=== PATIENT | male | born 1940 | race Caucasian/White ===

== ENCOUNTER 2020-07-31 15:52 | Emergency (ER) | payer OTHER ==
[~2020-07-31] VITALS: Ht 177.8 cm; Wt 70.3 kg
--- NOTE | ~2020-07-31 | EMS ---
[address] [address] EMS Patient Care Report Name: ROYA NAVAS Room #: REG ALEXIA Godfrey#: [id number] Admission: 07/31/20 Attend Phys: Discharge: Date of : 38 Report #: [id number] THIS REPORT FOR: //name// Report Transmitted: 07/31/2020 17:36 EMS Care Summary [facility] MED-ACT Incident [id number] @ 07/31/2020 15:11 Incident Location [address] [place] [address] Patient ROYA NAVAS Male, 79 Years 1940 Patient Address [address] [place] [address] Patient History Chronic Obstructive Pulmonary Disease (COPD),Dementia,Depression,Alcohol Abuse,Insomnia, Patient Allergies No known allergies, Patient Medications Trazodone, Acetaminophen, Aspirin, Atorvastatin, Albuterol, Lisinopril, Chief Complaint increased confusion, dementia Disposition Transported No Lights/[place] Dispatch Reason Psychiatric Problem/Abnormal Behavior/Suicide Attempt Transported To [facility] Narrative This crew arrives to find the pt sitting upright in a chair inside of the lobby [address] [address] EMS Patient Care Report Name: ROYA NAVAS Room #: REG Bekah#: [id number] Admission: 07/31/20 Attend Phys: Discharge: Date of : 38 Report #: [id number] of this facility. He appears alert and in no obvious distress, speaking with crew and staff. [place] staff state that the pt has been acting increasingly confused and agitated of late. On this date his doctor and son (DPRHONDA) reportedly asked for the pt to be transported to [facility] ER for a psych evaluation and diagnosis of dementia. The expressed intent is said to be to move the pt to the memory care part of this facility, as the pt continually talks about leaving the facility. The pt denies specific pain or complaint. He is confused to time, location, and event. He is somewhat resistant to transport, but with brief conversation he moves from the chair to the cot under his own power. The pt is secured and moved to the ambulance without incident. He is transported with one attendant in back, no change in condition en route. The pt is moved to an ER olvera bed under his own power, report and care given to KIRA Kelly. Initial Vitals @15:35P: 74,BP: 162/77,SpO2: 99, @15:43P: 66,BP: 158/73,SpO2: 99, @PTAP: 80,R: 20,BP: 161/86,Pain: 0/10,GCS: 14,SpO2: 96,Revised Trauma: 12, Assessments @15:41MENTAL:Place Oriented,SKIN:HEENT:Eyes: Left Pupil: 3-mm,Eyes: Right Pupil: 3-mm,Head/Face: No Abnormalities,LUNG SOUNDS:General: No Abnormalities,ABDOMEN:General: No Abnormalities,PELVIS//GI:EXTREMITIES:Left Arm: No Abnormalities,Right Arm: No Abnormalities,Left Leg: No Abnormalities,Right Leg: No Abnormalities,PULSE:NEURO:No Abnormalities, Impression Confusion/Delirium Procedures @15:41ALS AssessmentResponse: [email or web address]@PTA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 PatientResponse: Unchanged 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,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 Patient,Response: Unchanged FLEXO FOLDER GLUER OPERATOR,BP: 161/86 M,PULSE: 80,RR: 20 R,SPO2: 96 Ox,ETCO2: ,BG: ,PAIN: 0,GCS: 14, 15:09,Call Received 15:09,Psap Call 15:11,Dispatched 15:12,En Route 15:22,On Scene 15:24,At Patient 15:32,Depart Scene 15:35,BP: 162/77 M,PULSE: 74,RR: R,SPO2: 99 Ox,ETCO2: ,BG: ,PAIN: ,GCS: , 15:41,ALS Assessment,Response: UnchangedSucceeded, 15:43,BP: 158/73 M,PULSE: 66,RR: R,SPO2: 99 Ox,ETCO2: ,BG: ,PAIN: ,GCS: , [address] [address] EMS Patient Care Report Name: ELOISEROYA Room #: REG ALEXIA Godfrey#: [id number] Admission: 07/31/20 Attend Phys: Discharge: Date of : 38 Report #: [id number] 15:46,At Destination 16:01,Call Closed Disclaimer v1.1 Copyright 2020 [employer] This EMS Care Summary contains data elements from the applicable legal record (which may be displayed differently). It is designed to provide pertinent information for the following purposes: continuity of care, clinical quality, and state data reporting. The complete legal record is available to ED staff and administrators of the receiving hospital in [employer]'s Patient Tracker. All data is provided "as is."
[2020-07-31] MEDS ORDERED: TYLENOL325 M1 PO (16:08)
[2020-07-31] MEDS ORDERED: ASA81BEC PO (16:09)
[2020-07-31] MEDS ORDERED: PROAIR HFA8.5 GM INH (16:09)
[2020-07-31] MEDS ORDERED: LIPITOR 20 MG T20 M1 PO (16:09)
[2020-07-31] MEDS ORDERED: CELEBREX 200 M200 MG PO (16:09)
[2020-07-31] MEDS ORDERED: VITAMIN B-1100 M2 PO (16:10)
[2020-07-31] MEDS ORDERED: LISINOPRIL2.5 MG PO (16:10)
[2020-07-31] MEDS ORDERED: CLARITIN10 M3 PO (16:10)
[2020-07-31] MEDS ORDERED: FAMOTIDINE 20 M20 MG PO (16:10)
[2020-07-31] MEDS ORDERED: MELATONIN3 M1 PO (16:11)
[2020-07-31] MEDS ORDERED: DESYREL150 MG PO (16:11)
[2020-07-31] MEDS ORDERED: ANTACID LIQUID355 ML PO (16:12)
[2020-07-31 16:56] LABS: ABSOLUTE NEUTROPHILS 5.1 thou/uL (1.4-8.2); BASOPHILS 0.8 % (0.0-2.0); EOSINOPHILS 2.1 % (0.0-3.0); HEMOGLOBIN 15.1 gm/dL (14.0-18.0); LYMPHOCYTES 19.2 % (24.0-44.0); MCH 33.8 pg (26.0-34.0); MCHC 33.6 g/dL (28.0-37.0); MCV 100.5 fL (80.0-100.0); MONOCYTES 6.7 % (1.0-8.0); PLATELET COUNT 323 thou/uL (150-400); POLYS 71.2 % (36.0-66.0); RBC 4.48 mil/uL (4.50-6.00); RDW 14.2 % (10.5-14.5); WBC 7.2 thou/uL (4.0-11.0)
[2020-07-31 17:02] LABS: ANION GAP 10 mmol/L (7-16); BUN 10 mg/dL (7-18); CALCIUM 9.5 mg/dL (8.5-10.1); CHLORIDE 98 mmol/L (98-107); CO2 26 mmol/L (21-32); CREATININE 0.8 mg/dL (0.7-1.3); GLUCOSE 81 mg/dL (74-106); POTASSIUM 4.2 mmol/L (3.5-5.1); SODIUM 134 mmol/L (136-145)
[2020-07-31 17:13] LABS: MAGNESIUM 2.3 mg/dL (1.8-2.4); SGOT 23 U/L (15-37); SGPT 12 U/L (30-65); TOTAL BILIRUBIN 0.4 mg/dL (0.2-1.0); TOTAL PROTEIN 8.2 g/dL (6.4-8.2); TROPONIN-I <0.06 ng/mL (<0.06)
[2020-07-31 17:31] LABS: URINE BILIRUBIN NEGATIVE (Negative); URINE BLOOD 2+ (Negative); URINE CLARITY CLEAR; URINE COLOR YELLOW; URINE GLUCOSE-RANDOM* NEGATIVE (Negative); URINE KETONES NEGATIVE (Negative); URINE LEUKOCYTES-REFLEX NEGATIVE (Negative); URINE NITRITE-REFLEX NEGATIVE (Negative); URINE PROTEIN (DIPSTICK) NEGATIVE (Negative); URINE SPECIFIC GRAVITY <= 1.005 (1.005-1.035); URINE UROBILINOGEN 0.2 E.U./dl (0.2-1.0)
[2020-07-31 17:38] LABS: AMP/METHAMP Negative (Negative); BARBITURATES Negative (Negative); BENZODIAZEPINES Negative (Negative); COCAINE Negative (Negative); METHADONE Negative (Negative); OPIATES Negative (Negative); PCP Negative (Negative)
[2020-07-31 18:20] LABS: BACTERIA-REFLEX 1-9 Few /HPF (None Seen); CASTS None Seen /LPF (None Seen); CRYSTALS None Seen /LPF (None Seen); SQUAMOUS None Seen /LPF (0-3); URINE RBC 0-2 Rare /HPF (0-2); URINE WBC-REFLEX None Seen /HPF (0-5)
--- NOTE | 2020-08-01 07:46 | EKG ---
[facility] [place] [address] ELECTROCARDIOGRAM REPORT Name: ROYA NAVAS Room #: REG [facility]..#: [id number] Admission: 07/31/20 Attend Phys: Discharge: Date of : 39 Report #: [id number] THIS REPORT FOR: cc: Kateryna Murphy MD, Nelopher MD Santiago, Patrick MD [facility] ~ THIS REPORT FOR: //name// [facility] ED Test Date: 2020-07-31 Test Time: 17:27:43 Pat Name: ROYA NAVAS Department: Room: Gender: Pearl Maker: eb murphy : 1940 Requested By: Lebron Ontiveros Order Number: [id number] MD: Tray Corbin Measurements Intervals [place] Rate: 72 P: 269 WI: 178 QRS: -75 QRSD: 99 T: 69 QT: 416 QTc: 456 Interpretive Statements Ectopic atrial rhythm Left anterior fascicular block Abnormal R-wave progression, early transition Baseline wander in lead(s) V3 No previous ECG available for comparison Electronically Signed On 08-01-2020 7:45:55 CDT by Tray Corbin [email or web address] <ELECTRONICALLY SIGNED> By: Tray Corbin MD, FACC 08/01/20 0745 [id number] Tray Corbin MD, FAC /EPI
[2020-08-01 10:02] VITALS: BP 152/76
--- NOTE | 2020-08-01 18:59 | HC ---
[facility] [place] [address] CONSULTATION Name: ROYA NAVAS Room #: [facility] [id number] Admission: 07/31/20 Attend Phys: Discharge: 08/01/20 Date of : 39 Report #: [id number] THIS REPORT FOR: cc: Kateryna Murphy MD, Nelopher MD Kerstein,Gareth Turner DO ~ DATE OF SERVICE: 07/31/2020 EMERGENCY ROOM CONSULTATION EMERGENCY DEPARTMENT ATTENDING: Lebron Ontiveros MD ATTENDING PSYCHIATRIST: Gareth Lobo, REASON FOR CONSULTATION: Question of dementia, appropriate level of care. CHIEF COMPLAINT: Sent to the Emergency Room for attempting to leave the assisted living facility he is at and being agitated. SOURCES OF INFORMATION: Emergency Room staff, notes of Dr. Ontiveros, telephone conversation with his son and DPOA Jose Armando Navas, . Telephone conversation with nurse, Lucas at [phone]. Additionally, telephone call with Dr. Miranda at [phone]. HISTORY OF PRESENT ILLNESS: An 79-year-old male with significant history of alcoholism, was sent out [facility]. He is unable to tell the ED staff why he is here or why he was brought to the ER. He does not know who his PCP was, states month is November. He believes he takes medicine daily. He reports he is given 2 beers daily at assisted living facility, which turns out to be true. He denies recent illness. Staff complained of new onset of dementia. He denies systemic symptoms including fever, chills, nausea, vomiting or diarrhea or cough, shortness of air or chest pain. SIGNIFICANT MEDICAL HISTORY: Alcoholism, particularly since his 6-7 years ago. States he has been at [facility] a year with depression. PAST MEDICAL HISTORY: Includes GERD, hypertension, gastritis, COPD, insomnia, hypertension, balance problems. HOME MEDICATIONS: Acetaminophen 650 mg p.o. b.i.d. p.r.n. pain, albuterol sulfate 2 puffs inhaled q.4-6 hours p.r.n. for wheezing, aspirin enteric coated 81 mg oral daily, atorvastatin 40 mg p.o. at bedtime, celecoxib 200 mg p.o. at bedtime, famotidine 20 mg p.o. daily, loratadine 1 tablet p.o. at bedtime, vitamin 1 tab p.o. at bedtime, trazodone 100 mg p.o. at bedtime, melatonin [address] [address] CONSULTATION Name: ROYA NAVAS Room #: DEP ALEXIA Godfrey#: [id number] Admission: 07/31/20 Attend Phys: Discharge: 08/01/20 Date of : 39 Report #: [id number] p.o. at bedtime and looks like simethicone. ALLERGIES: No known allergies. REVIEW OF SYSTEMS: From the Emergency Room: CONSTITUTIONAL: Denies fever, chills, malaise, unexplained weight change. EYES: Denies eye pain, visual change or discharge. HENT: Denies hearing changes, ear drainage, ear infections, ear pain, neck pain or neck stiffness. RESPIRATORY: Denies cough, shortness of breath, hemoptysis or respiratory distress. CARDIOVASCULAR: Denies chest pain, chest pain with exertion or edema. GASTROINTESTINAL: Denies abdominal pain, nausea, vomiting or diarrhea. GENITOURINARY: Denies burning, frequency or dysuria. MUSCULOSKELETAL: Denies back pain, joint pain, muscle weakness or myalgias. SKIN: Denies rash. NEUROLOGIC: Denies weakness, headache, loss of consciousness. Weight 70.31 kg, BMI 22.2. Physical exam, other than being disheveled, grossly normal. LABORATORY AND DIAGNOSTIC DATA: Laboratories done in the ER were quite numerous including white count 7.2, hemoglobin 15.1, hematocrit 45.0, MCV of 100.5, consistent with continued alcoholism, platelet count of 323. Chemistries: Sodium 134, potassium 4.2, chloride 98, bicarbonate 26, anion gap 10, BUN 10, creatinine 0.8, estimated GFR 93, glucose 81, calcium 9.5, magnesium 2.3, total bilirubin 0.4, AST 23, ALT 12, alkaline phosphatase 61. CK 50. Troponin less than 0.06. Total protein 8.2, albumin 4.0. Urinalysis had 2+ blood, 1-9 which is few bacteria. Toxicology, blood alcohol level was 42. Urine drug screen was negative, otherwise including negative for marijuana. There was imaging done. Chest x-ray was consistent with COPD with hyperinflation of the lungs. Otherwise, no acute process. The patient is a smoker, reports that he smokes in the neighborhood of a pack a day. Head CT was done, no acute process found. PHYSICAL EXAMINATION: VITAL SIGNS: Temperature 36.7, pulse 64, respirations 18, BP 131/69, O2 sat 99% on room air. GENERAL: Lying on the gurney. He was seen via televideo with me. MENTAL STATUS EXAMINATION: This is a well-developed, disheveled-appearing male, appearing at least stated age, rather older than stated age. Attention limited. Concentration limited. Speech is normal rate. Thought process is linear and goal oriented. Thought content focussed on doing something new as he says. Denied suicidal intent or plan. Denied homicidal intent or plan. Denied auditory, visual, or tactile hallucinations. Mood and affect were congruent and euthymic. He was only oriented to self. He did know the month, knew the was 2019, was not clear on the place he was at, did not know the day of the week. He does have some additional history, positive [facility] [address] [place] [address] CONSULTATION Name: ROYA NAVAS Room #: DEP Bekah#: [id number] Admission: 07/31/20 Attend Phys: Discharge: 08/01/20 Date of : 39 Report #: [id number] history for service [employer] and served 3 years. Additonal Hx from son Jose Armando. Born and raised in [place], high school graduate, only has one child. He had 5 brothers and sisters, so they were a total of 11 of them. He states they are still living, but it is not independently verified. His son also gave me collateral. [facility] [place] [facility] and [facility] declined [facility] because of his concurrent alcoholism. FORMULATION: An 79-year-old male sent from assisted living in [facility] for increased agitation and exit seeking behavior. The patient had BAL of 42. DIAGNOSES: Major neurocognitive disorder, likely multifactorial with some behavioral disturbance. Additionally, substance use disorder for alcoholism at least moderate degree. Currently being provided with alcohol at his nursing facility. ADDITIONAL DIAGNOSES: Includes chronic obstructive pulmonary disease, hyperlipidemia, hypertension. RECOMMENDATIONS: At this time, the patient requires 24/7 supervision and assistance. He requires memory level of care. I advised the son that he should no longer be provided with alcoholic beverages as this will disinhibit him which is undesirable, even though he has dementia. I would continue to allow tobaccoism at this point. The son has offered to provide it. ADDENDUM When I called Dr. Murphy, she said they could not provide for the patient's safety tonight at the facility, but could take him back in memory care capacity tomorrow. I advised her that in my opinion this was not appropriate use of the Emergency Room and so I called back Dr. Ontiveros, relayed to him my conversations and he told me the patient will be admitted. I furnished nurseLeticia with the information I got from Jose Armando, the nurse at [facility] and Dr. Murphy. Time spent on this is approximately an hour and fifteen minutes. <ELECTRONICALLY SIGNED> By: Gareth Lobo DO 08/01/20 1859 55 03 Gareth Lobo DO /nt
== END 2020-08-01 10:02 | disposition home or self-care (01) ==
LOC: ER 15:52
PROVIDERS: Emergency Medicine
DX: F03.90 Unspecified dementia, unspecified severity, without behavioral disturbance, psychotic disturbance, mood disturbance, and anxiety (principal); F10.10 Alcohol abuse, uncomplicated; J44.9 Chronic obstructive pulmonary disease, unspecified; I10 Essential (primary) hypertension; K21.9 Gastro-esophageal reflux disease without esophagitis; Z79.82 Long term (current) use of aspirin; Z79.899 Other long term (current) drug therapy

== ENCOUNTER 2021-10-13 18:34 | Emergency (ER) | payer OTHER ==
[~2021-10-13] VITALS: Ht 177.8 cm; Wt 50.8 kg
--- NOTE | ~2021-10-13 | EMS ---
[address] [address] EMS Patient Care Report Name: ROYA NAVAS Room #: DEP ALEXIA Godfrey#: [id number] Admission: 10/13/21 Attend Phys: Discharge: 10/13/21 Date of : 39 Report #: [id number] THIS REPORT FOR: //name// Report Transmitted: 10/13/2021 22:38 EMS Care Summary [facility] MED-ACT Incident [id number] @ 10/13/2021 17:41 Incident Location [address] [place] [address] Patient ROYA NAVAS Male, 80 Years 1940 Patient Address [address] [place] [address] Patient History Chronic Obstructive Pulmonary Disease (COPD),Dementia,Hypertension (HTN),Depression,Alcohol Abuse, Patient Allergies No known allergies, Patient Medications Albuterol, Trazodone, Famotidine, Lorazepam, Atorvastatin, Lisinopril, Aspirin, Acetaminophen, Loratadine, Chief Complaint Abdominal Pain Disposition Transported No Lights/[place] Dispatch Reason Abdominal Pain/Problems Transported To [facility] Narrative [address] [address] EMS Patient Care Report Name: ROYA NAVAS Room #: DEP BethKerry#: [id number] Admission: 10/13/21 Attend Phys: Discharge: 10/13/21 Date of : 38 Report #: [id number] D- [id number] is dispatched to an assisted living facility for a report of a male pt with abdominal pain. C- EMS arrives to find an 80 year old male sitting upright in a wheelchair in the main lobby of the facility. The pt is grimacing, with his hands over his upper abdomen. The pt is not alert to date/time. This is the pts baseline mental status per staff. The pt has a CC of right and left upper abdominal quadrant pain. H- The pt reports that he has had non-radiating left and right upper abdominal quadrant pain since 16:00 today. The pt describes the pain as a "sharp" pain. The pt reports feeling nauseated, but has not vomited. The pt rates the pain as 8/10. The pt reports that he has not experienced this pain before. Staff states that the pt was diagnosed with an aortic aneurysm on September 03. Staff reports that the family was discussing possible surgery, but did not have a definitive treatment plan yet. A- See assessment tab. Tx- Vitals, 12 lead, vascular access, and Fentanyl administration. T- The pt is assisted to the cot and is secured. The pt appears to be pain and rates the pain as 8/10. After two separate doses of 50 mcg each of Fentanyl, the pt reports a decrease in his pain and is noted to be more relaxed though says that he is still having discomfort. The pt also complains of nausea while en route and is given 4 mg IV zofran. The pt remains stable while en route and pts disposition did not change. The pt is transferred to staff educator in room 12 at [facility]. Initial Vitals @18:01P: 78,AR Suspected: false @18:07P: 75,BP: 193/85, @18:18P: 76,BP: 202/79,Pain: 6/10,SpO2: 97, @17:59P: 76,BP: 212/95, @18:17P: 76,SpO2: 98, @18:23P: 73,BP: 196/87,Pain: 5/10,SpO2: 98, @PTAP: 76,R: 18,BP: 186/84,SpO2: 99, @17:54P: 75,R: 15,Pain: 8/10,GCS: 15,Temp: 97.2F,SpO2: 97,AR Suspected: false Impression Abdominal Pain Procedures @17:49 ALS Assessment Response: UnchangedSucceeded @18:01 IV Therapy - Saline Lock 20cc (18 ga) Site: Antecubital-Left Response: [address] [address] EMS Patient Care Report Name: ROYA NAVAS Room #: DEP Bekah#: [id number] Admission: 10/13/21 Attend Phys: Discharge: 10/13/21 Date of : 38 Report #: [id number] UnchangedSucceeded @18:02 Fentanyl - 50 Micrograms (mcg) - Intravenous (IV) Response: Unchanged @18:08 Fentanyl - 50 Micrograms (mcg) - Intravenous (IV) Response: Unchanged @18:09 Ondansetron - 4 Milligrams (mg) - Intravenous (IV) Response: Unchanged @18:10 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 Patient Response: Unchanged @18:01 12-Lead ECG Response: UnchangedSucceeded 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,BP: 186/84 M,PULSE: 76,RR: 18 R,SPO2: 99 Ox,ETCO2: ,BG: ,PAIN: ,GCS: , 17:39,Call Received 17:39,Psap Call 17:41,Dispatched 17:41,En Route 17:47,On Scene 17:48,At Patient 17:49,ALS Assessment,Response: UnchangedSucceeded, 17:54,BP: / M,PULSE: 75,RR: 15 R,SPO2: 97 Ox,ETCO2: ,BG: ,PAIN: 8,GCS: 15, 17:59,BP: 212/95 M,PULSE: 76,RR: R,SPO2: Ox,ETCO2: ,BG: ,PAIN: ,GCS: , 18:01,12-Lead ECG,Response: UnchangedSucceeded, 18:01,BP: / M,PULSE: 78,RR: R,SPO2: Ox,ETCO2: ,BG: ,PAIN: ,GCS: , 18:01,IV Therapy - Saline Lock 20cc 18 ga Site: Antecubital-Left,Response: UnchangedSucceeded, 18:02,Fentanyl - 50 Micrograms (mcg) - Intravenous (IV),Response: Unchanged 18:02,Depart Scene 18:07,BP: 193/85 M,PULSE: 75,RR: R,SPO2: Ox,ETCO2: ,BG: ,PAIN: ,GCS: , 18:08,Fentanyl - 50 Micrograms (mcg) - Intravenous (IV),Response: Unchanged 18:09,Ondansetron - 4 Milligrams (mg) - Intravenous (IV),Response: Unchanged 18:10,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 Patient,Response: Unchanged 18:17,BP: / M,PULSE: 76,RR: R,SPO2: 98 Ox,ETCO2: ,BG: ,PAIN: ,GCS: , 18:18,BP: 202/79 M,PULSE: 76,RR: R,SPO2: 97 Ox,ETCO2: ,BG: ,PAIN: 6,GCS: , 18:23,BP: 196/87 M,PULSE: 73,RR: R,SPO2: 98 Ox,ETCO2: ,BG: ,PAIN: 5,GCS: , 18:24,At Destination 18:58,Call Closed Disclaimer v1.1 Copyright 202 [employer] This EMS Care Summary contains data elements from the applicable legal record (which may be displayed differently). It is designed to provide pertinent information for the following purposes: continuity of care, clinical quality, and state data reporting. The complete legal record is available to ED staff and administrators of the receiving hospital in [employer] Patient Tracker. All data is provided "as is."
--- NOTE | ~2021-10-13 | EMS ---
[address] [address] EMS Patient Care Report Name: ROYA NAVAS Room #: DEP ALEXIA Godfrey#: [id number] Admission: 10/13/21 Attend Phys: Discharge: 10/13/21 Date of : 38 Report #: [id number] THIS REPORT FOR: //name// Report Transmitted: 10/13/2021 23:39 EMS Care Summary [facility] MED-ACT Incident [id number] @ 10/13/2021 17:41 Incident Location [address] [place] [address] Patient ROYA NAVAS Male, 80 Years 1940 Patient Address [address] [place] [address] Patient History Chronic Obstructive Pulmonary Disease (COPD),Dementia,Hypertension (HTN),Depression,Alcohol Abuse, Patient Allergies No known allergies, Patient Medications Albuterol, Trazodone, Famotidine, Lorazepam, Atorvastatin, Lisinopril, Aspirin, Acetaminophen, Loratadine, Chief Complaint Abdominal Pain Disposition Transported No Lights/[place] Dispatch Reason Abdominal Pain/Problems Transported To [facility] Narrative [address] [address] EMS Patient Care Report Name: ROYA NAVAS Room #: DEP BethKerry#: [id number] Admission: 10/13/21 Attend Phys: Discharge: 10/13/21 Date of : 38 Report #: [id number] D- [id number] is dispatched to an assisted living facility for a report of a male pt with abdominal pain. C- EMS arrives to find an 80 year old male sitting upright in a wheelchair in the main lobby of the facility. The pt is grimacing, with his hands over his upper abdomen. The pt is not alert to date/time. This is the pts baseline mental status per staff. The pt has a CC of right and left upper abdominal quadrant pain. H- The pt reports that he has had non-radiating left and right upper abdominal quadrant pain since 16:00 today. The pt describes the pain as a "sharp" pain. The pt reports feeling nauseated, but has not vomited. The pt rates the pain as 8/10. The pt reports that he has not experienced this pain before. Staff states that the pt was diagnosed with an aortic aneurysm on September 03. Staff reports that the family was discussing possible surgery, but did not have a definitive treatment plan yet. A- See assessment tab. Tx- Vitals, 12 lead, vascular access, and Fentanyl administration. T- The pt is assisted to the cot and is secured. The pt appears to be pain and rates the pain as 8/10. After two separate doses of 50 mcg each of Fentanyl, the pt reports a decrease in his pain and is noted to be more relaxed though says that he is still having discomfort. The pt also complains of nausea while en route and is given 4 mg IV zofran. The pt remains stable while en route and pts disposition did not change. The pt is transferred to staffing administrator in room 12 at [facility]. Initial Vitals @18:01P: 78,NM Suspected: false @18:07P: 75,BP: 193/85, @18:18P: 76,BP: 202/79,Pain: 6/10,SpO2: 97, @17:59P: 76,BP: 212/95, @18:17P: 76,SpO2: 98, @18:23P: 73,BP: 196/87,Pain: 5/10,SpO2: 98, @PTAP: 76,R: 18,BP: 186/84,SpO2: 99, @17:54P: 75,R: 15,Pain: 8/10,GCS: 15,Temp: 97.2F,SpO2: 97,NM Suspected: false Impression Abdominal Pain Procedures @17:49 ALS Assessment Response: UnchangedSucceeded @18:01 IV Therapy - Saline Lock 20cc (18 ga) Site: Antecubital-Left Response: [facility] [address] [place] [address] EMS Patient Care Report Name: ROYA NAVAS Room #: DEP Bekah#: [id number] Admission: 10/13/21 Attend Phys: Discharge: 10/13/21 Date of : 38 Report #: [id number] UnchangedSucceeded @18:02 Fentanyl - 50 Micrograms (mcg) - Intravenous (IV) Response: Unchanged @18:08 Fentanyl - 50 Micrograms (mcg) - Intravenous (IV) Response: Unchanged @18:09 Ondansetron - 4 Milligrams (mg) - Intravenous (IV) Response: Unchanged @18:10 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 Patient Response: Unchanged @18:01 12-Lead ECG Response: UnchangedSucceeded 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,BP: 186/84 M,PULSE: 76,RR: 18 R,SPO2: 99 Ox,ETCO2: ,BG: ,PAIN: ,GCS: , 17:39,Call Received 17:39,Psap Call 17:41,Dispatched 17:41,En Route 17:47,On Scene 17:48,At Patient 17:49,ALS Assessment,Response: UnchangedSucceeded, 17:54,BP: / M,PULSE: 75,RR: 15 R,SPO2: 97 Ox,ETCO2: ,BG: ,PAIN: 8,GCS: 15, 17:59,BP: 212/95 M,PULSE: 76,RR: R,SPO2: Ox,ETCO2: ,BG: ,PAIN: ,GCS: , 18:01,12-Lead ECG,Response: UnchangedSucceeded, 18:01,BP: / M,PULSE: 78,RR: R,SPO2: Ox,ETCO2: ,BG: ,PAIN: ,GCS: , 18:01,IV Therapy - Saline Lock 20cc 18 ga Site: Antecubital-Left,Response: UnchangedSucceeded, 18:02,Fentanyl - 50 Micrograms (mcg) - Intravenous (IV),Response: Unchanged 18:02,Depart Scene 18:07,BP: 193/85 M,PULSE: 75,RR: R,SPO2: Ox,ETCO2: ,BG: ,PAIN: ,GCS: , 18:08,Fentanyl - 50 Micrograms (mcg) - Intravenous (IV),Response: Unchanged 18:09,Ondansetron - 4 Milligrams (mg) - Intravenous (IV),Response: Unchanged 18:10,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 Patient,Response: Unchanged 18:17,BP: / M,PULSE: 76,RR: R,SPO2: 98 Ox,ETCO2: ,BG: ,PAIN: ,GCS: , 18:18,BP: 202/79 M,PULSE: 76,RR: R,SPO2: 97 Ox,ETCO2: ,BG: ,PAIN: 6,GCS: , 18:23,BP: 196/87 M,PULSE: 73,RR: R,SPO2: 98 Ox,ETCO2: ,BG: ,PAIN: 5,GCS: , 18:24,At Destination 18:58,Call Closed Disclaimer v1.1 Copyright 2020 [employer] This EMS Care Summary contains data elements from the applicable legal record (which may be displayed differently). It is designed to provide pertinent information for the following purposes: continuity of care, clinical quality, and state data reporting. The complete legal record is available to ED staff and administrators of the receiving hospital in [employer] Patient Tracker. All data is provided "as is."
[~2021-10-13 18:34] MED LIST: ANTACID LIQUID355 ML PO; ASA81BEC PO; CELEBREX 200 M200 MG PO; CLARITIN10 M3 PO; DESYREL150 MG PO; FAMOTIDINE 20 M20 MG PO; LIPITOR 20 MG T20 M1 PO; LISINOPRIL2.5 MG PO; MELATONIN3 M1 PO; PROAIR HFA8.5 GM INH; TYLENOL325 M1 PO; VITAMIN B-1100 M2 PO
[2021-10-13 19:01] LABS: ABSOLUTE NEUTROPHILS 8.6 thou/uL (1.4-8.2); BASOPHILS 1.3 % (0.0-2.0); EOSINOPHILS 1.1 % (0.0-3.0); HEMOGLOBIN 12.1 gm/dL (14.0-18.0); LYMPHOCYTES 9.9 % (24.0-44.0); MCH 33.6 pg (26.0-34.0); MCHC 34.4 g/dL (28.0-37.0); MCV 97.5 fL (80.0-100.0); MONOCYTES 7.2 % (1.0-8.0); PLATELET COUNT 308 thou/uL (150-400); POLYS 80.5 % (36.0-66.0); RBC 3.59 mil/uL (4.50-6.00); RDW 13.6 % (10.5-14.5); WBC 10.7 thou/uL (4.0-11.0)
[2021-10-13 19:12] LABS: CALCIUM 8.8 mg/dL (8.5-10.1); CREATININE 0.9 mg/dL (0.7-1.3)
[2021-10-13 19:23] LABS: ALBUMIN 3.4 g/dL (3.4-5.0); TOTAL BILIRUBIN 0.2 mg/dL (0.2-1.0); TOTAL PROTEIN 6.9 g/dL (6.4-8.2)
[2021-10-13 21:33] LABS: URINE BILIRUBIN NEGATIVE (Negative); URINE BLOOD 2+ (Negative); URINE CLARITY CLEAR; URINE COLOR YELLOW; URINE GLUCOSE-RANDOM* NEGATIVE (Negative); URINE KETONES TRACE (Negative); URINE LEUKOCYTES-REFLEX NEGATIVE (Negative); URINE NITRITE-REFLEX NEGATIVE (Negative); URINE PROTEIN (DIPSTICK) NEGATIVE (Negative); URINE UROBILINOGEN 0.2 E.U./dl (0.2-1.0)
[2021-10-13 21:40] LABS: SQUAMOUS 0-3 Few /LPF (0-3)
[2021-10-13 21:41] LABS: BACTERIA-REFLEX 1-9 Few /HPF (None Seen); CASTS None Seen /LPF (None Seen); CRYSTALS None Seen /LPF (None Seen); URINE RBC 1-2 Rare /HPF (NONE SEEN); URINE WBC-REFLEX 0-5 Rare /HPF (0-5)
[2021-10-13 22:43] VITALS: BP 160/63
--- NOTE | 2021-10-14 10:24 | EKG ---
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 : 1940 Requested By: Elton Ferrari Order Number: [id number] MD: Tray Corbin Measurements Intervals [place] Rate: 71 P: 114 WV: 165 QRS: -59 QRSD: 99 T: 70 QT: 435 QTc: 473 Interpretive Statements Sinus rhythm Left anterior fascicular block Abnormal R-wave progression, early transition Nonspecific T abnormalities, lateral leads Compared to ECG 07/31/2020 17:27:43 T-wave abnormality now present Ectopic atrial rhythm no longer present Electronically Signed On 10-14-2021 10:24:27 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
== END 2021-10-13 23:35 ==
LOC: ER 18:34
PROVIDERS: Emergency Medicine
DX: R10.13 Epigastric pain (principal); F10.10 Alcohol abuse, uncomplicated; F32.9 Major depressive disorder, single episode, unspecified; K21.9 Gastro-esophageal reflux disease without esophagitis; J44.9 Chronic obstructive pulmonary disease, unspecified; I10 Essential (primary) hypertension; Z79.51 Long term (current) use of inhaled steroids; Z79.82 Long term (current) use of aspirin; Z79.891 Long term (current) use of opiate analgesic; Z79.1 Long term (current) use of non-steroidal anti-inflammatories (NSAID); Z79.899 Other long term (current) drug therapy